=== PATIENT | female | born 1990 | race African-American/Black ===

== ENCOUNTER 2019-02-02 10:23 | Observation (INO) | payer MEDICAID ==
[2019-02-02 12:11] LABS: CLARITY URINE CLOUDY (CLEAR); COLOR URINE YELLOW (YELLOW); KETONES URINE NEGATIVE (NEGATIVE); LEUKOCYTE ESTERASE URINE 1+ (NEGATIVE); NITRITE URINE NEGATIVE (NEGATIVE); OCCULT BLOOD URINE NEGATIVE (NEGATIVE); PROTEIN URINE TRACE (NEGATIVE); SPECIFIC GRAVITY URINE 1.025 (1.005-1.030)
== END 2019-02-02 13:20 | disposition home or self-care (01) ==
LOC: 8 EST A/PP 10:23 → 8 EST LDRP 10:40
PROVIDERS: ADMIT Obstetrics & Gynecology; ATTEND Obstetrics & Gynecology
DX: O99.513 Diseases of the respiratory system complicating pregnancy, third trimester (principal); R06.89 Other abnormalities of breathing; Z3A.37 37 weeks gestation of pregnancy
CPT/HCPCS: 81003; 99281; G0378; 96360

== ENCOUNTER 2020-10-16 20:43 | Emergency (ER) | payer MEDICAID ==
[~2020-10-16] VITALS: Ht 165.1 cm; Wt 65.0 kg
[2020-10-16 21:16] VITALS: BP 112/78
[2020-10-16] MEDS ORDERED: LORA5TAB8 MT (23:00)
== END 2020-10-16 23:16 | disposition home or self-care (01) ==
LOC: ER 20:43
DX: R09.81 Nasal congestion (principal); R05 Cough
CPT/HCPCS: 71046; 99283

== ENCOUNTER 2021-02-06 01:43 | Emergency (ER) | payer MEDICAID ==
[~2021-02-06] VITALS: Ht 162.6 cm; Wt 59.0 kg
[~2021-02-06 01:43] MED LIST: LORA5TAB8 MT
[2021-02-06] MEDS ORDERED: SODIUM CHLORIDE 0.9% 1,000 ML IV ONE (03:15)
[2021-02-06 04:24] LABS: CLARITY URINE CLEAR (CLEAR); COLOR URINE YELLOW (YELLOW); KETONES URINE NEGATIVE (NEGATIVE); LEUKOCYTE ESTERASE URINE NEGATIVE (NEGATIVE); NITRITE URINE NEGATIVE (NEGATIVE); OCCULT BLOOD URINE NEGATIVE (NEGATIVE); PH URINE 6.5 (4.5-8.0); PROTEIN URINE NEGATIVE (NEGATIVE); SPECIFIC GRAVITY URINE 1.004 (1.005-1.030); UROBILINOGEN URINE 0.2 E.U./dL (0.2-1.0)
[2021-02-06 04:28] LABS: BASOPHILS % 0.9 % (0.0-2.0); CHLORIDE 112 mEq/L (98-107); EOSINOPHILS % 2.4 % (0.0-5.0); HEMATOCRIT. 38.7 % (36.0-48.0); HEMOGLOBIN. 12.6 g/dL (12.0-16.0); MEAN CORPUSCULAR HEMOGLOBIN 26.2 pg (28.0-32.0); MEAN CORPUSCULAR VOLUME 80.3 fL (81.0-99.0); MEAN PLATELET VOLUME 8.3 fl (7.4-10.4); MONOCYTES % 10.3 % (2.0-8.0); NEUTROPHILS % 55.4 % (40.0-76.0); PLATELET 264 x1000/uL (130-400); RED BLOOD CELL COUNT 4.82 mill/uL (4.2-5.4)
[2021-02-06 04:30] LABS: HCG SCREEN NEGATIVE
[2021-02-06] MEDS ORDERED: ONDANSETRON 4MG ODT PO ONE (04:30)
[2021-02-06 04:31] LABS: ETHANOL BLOOD 139 mg/dL
[2021-02-06 07:31] VITALS: BP 95/74
== END 2021-02-06 07:37 | disposition home or self-care (01) ==
LOC: ER 01:43
DX: F10.129 Alcohol abuse with intoxication, unspecified (principal); Y90.6 Blood alcohol level of 120-199 mg/100 ml; F41.9 Anxiety disorder, unspecified; F32.9 Major depressive disorder, single episode, unspecified
CPT/HCPCS: 36415; 80048; 80320; 81003; 82962; 84703; 85025; 96360; 99285; J7030; Q0162; G0480